=== PATIENT | male | born 1985 | race Caucasian/White ===

== ENCOUNTER 2018-02-12 20:55 | Emergency (ER) | payer BC, OTHER ==
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
[2018-02-12] MEDS ORDERED: AZITHROMYCIN 250 MG TABLET PO STA (22:35)
[2018-02-12] MEDS ORDERED: lamiVUDine/ZIDOVUDINE 150 MG/300 MG TABLET PO STA (22:35)
[2018-02-12 23:55] VITALS: BP 133/74
== END 2018-02-12 23:55 | disposition home or self-care (01) ==
LOC: ED 20:55
DX: Z11.3 Encounter for screening for infections with a predominantly sexual mode of transmission (principal)
CPT/HCPCS: 99282; 99283; A9270

== ENCOUNTER 2019-10-28 19:39 | Outpatient (CLI) | payer OTHER | END 2019-10-28 19:40 | disposition home or self-care (01) | LOC: COV 19:39 | PROVIDERS: ATTEND Family Medicine | DX: R05 Cough (principal); R06.02 Shortness of breath; M79.10 Myalgia, unspecified site; R53.83 Other fatigue; J02.9 Acute pharyngitis, unspecified; R09.81 Nasal congestion; Z20.828 Contact with and (suspected) exposure to other viral communicable diseases ==

== ENCOUNTER 2022-05-05 09:24 | Outpatient (CLI) | payer MEDICAID | END 2022-05-05 09:25 | disposition home or self-care (01) | LOC: DI 09:24 | PROVIDERS: ATTEND Physician Assistant | DX: R00.2 Palpitations (principal) | CPT/HCPCS: 93306 ==

== ENCOUNTER 2022-07-22 09:41 | Outpatient (CLI) | payer MEDICAID ==
--- NOTE | 2022-07-22 10:39 | Sleep Patient Instructions ---
Sleep Center Visit Summary - Patient Visit Information Reason for Visit: Initial consult for evaluation of sleep disordered breathing and other sleep issues. - Patient Instructions Instructions Attached: Sleep Study, Sleep Clinic Visit, Sleep Study Home Monitor Additional Instructions: You will be completing a sleep study, either an in-lab polysomnography (PSG) or home sleep study (HST). You will follow-up in the sleep care office after the sleep study is completed to hear the results and talk about therapy, if needed. You will be called by our office staff to schedule this appointment, but you may contact us with any questions. - Clinic Information Contact: [facility] [address] [place] [address] [email or web address] T: [phone]
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
[2022-07-22 10:45] VITALS: BP 118/68
== END 2022-07-22 09:42 | disposition home or self-care (01) ==
LOC: SC 09:41
PROVIDERS: ATTEND Nurse Practitioner Family
DX: R06.83 Snoring (principal); R06.81 Apnea, not elsewhere classified; E66.01 Morbid (severe) obesity due to excess calories; Z68.41 Body mass index [BMI] 40.0-44.9, adult; Z13.220 Encounter for screening for lipoid disorders; Z13.9 Encounter for screening, unspecified; Z13.29 Encounter for screening for other suspected endocrine disorder
CPT/HCPCS: 36415; 80053; 80061; 83721; 84443; 85025; 99203; 99212

== ENCOUNTER 2022-07-22 10:46 | Outpatient (CLI) | payer MEDICAID ==
[2022-07-22 17:52] LABS: BASOPHILS % (AUTO) 0.4 %; EOSINOPHILS # (AUTO) 0.1 10^3/uL (0.0-0.7); HCT - HEMATOCRIT 46.1 % (42.0-52.0); HGB - HEMOGLOBIN 15.1 g/dL (14.0-18.0); LYMPHOCYTES # (AUTO) 2.7 10^3/uL (1.5-3.5); LYMPHOCYTES % (AUTO) 29.5 %; MEAN CORPUSCULAR HEMOGLOBIN 29.9 pg (27.0-31.0); MEAN CORPUSCULAR HGB CONC 32.8 g/dL (32.0-36.0); MEAN CORPUSCULAR VOLUME 91.3 fL (80.0-94.0); MEAN PLATELET VOLUME 9.5 fL (7.4-11.4); MONOCYTES # (AUTO) 0.6 10^3/uL (0.0-1.0); NEUTROPHILS # (AUTO) 5.6 10^3/uL (1.5-6.6); NEUTROPHILS % (AUTO) 61.9 %; PLT - PLATELET COUNT 280 10^3/uL (130-450); RED BLOOD COUNT 5.05 10^6/uL (4.70-6.10); WHITE BLOOD COUNT 9.1 x10^3/uL (4.8-10.8)
[2022-07-22 18:16] LABS: ALBUMIN 4.1 g/dL (3.2-5.5); ALBUMIN/GLOBULIN RATIO 1.2 (1.0-2.2); BILIRUBIN,TOTAL 0.8 mg/dL (0.2-1.0); CALCIUM 9.3 mg/dL (8.5-10.3); CREATININE 0.7 mg/dL (0.6-1.2); POTASSIUM 3.9 mmol/L (3.5-5.0); TOTAL PROTEIN 7.6 g/dL (6.7-8.2)
[2022-07-22 18:19] LABS: CHOL/HDL RATIO 5.3 (<5.0); CHOLESTEROL 217 mg/dL; HDL CHOLESTEROL 41 mg/dL; TRIGLYCERIDES 433 mg/dL
[2022-07-22 18:21] LABS: THYROID STIMULATING HORMONE 1.62 uIU/mL (0.34-5.60)
[2022-07-22 18:51] LABS: LDL CHOLESTEROL,DIRECT 117 mg/dL; LDLD/HDL RATIO 2.9 (<3.6)
== END 2022-07-22 10:47 | disposition home or self-care (01) ==
LOC: LAB.N 10:46
PROVIDERS: ATTEND Physician Assistant
DX: Z13.220 Encounter for screening for lipoid disorders (principal); Z13.9 Encounter for screening, unspecified; Z13.29 Encounter for screening for other suspected endocrine disorder
CPT/HCPCS: 36415; 80053; 80061; 83721; 84443; 85025

== ENCOUNTER 2022-08-15 19:50 | Outpatient (CLI) | payer MEDICAID | END 2022-08-15 19:51 | disposition home or self-care (01) | LOC: SC 19:50 | PROVIDERS: ATTEND Nurse Practitioner Family | DX: G47.33 Obstructive sleep apnea (adult) (pediatric) (principal) | CPT/HCPCS: 95810 ==

== ENCOUNTER 2022-08-22 10:07 | Outpatient (CLI) | payer MEDICAID ==
--- NOTE | 2022-08-22 10:47 | SLEEP CARE CONSULTATION ---
Information from patient questionnaire entered by Alvin Cantu. I have reviewed and concur with the information entered by Alvin Cantu. This document represents the service I personally performed and the decisions made by me, Abilio Montana MD, [facility]. History of Present Illness Service Date and Time: 08/22/2022 1007 Initial [place] Sleepiness Scale score: 5 (07/22/22) Current [place] Sleepiness Scale score: 8 (08/22/22) Additional HPI information: Mr. Gavin returned for follow up of the sleep study he had on 08/15/2022. The polysomnography showed that The patient had reduced sleep efficiency due to prolonged awakening in the first half of the night. The sleep architecture was abnormal for sleep fragmentation and lack of REM and slow wave sleep (N3). Respiratory monitoring showed very severe obstructive sleep apnea-hypopnea (AHI = 94.5) associated with frequent arousals, oxyhemoglobin desaturation and moderate hypoxia (danica oxygen saturation of 63%). Baseline oxygen saturation was normal. The patient slept almost exclusively in non-supine positions (supine AHI = 116.8; non-supine = 88.36). Snore was moderate to loud in intensity. There was no significant periodic leg movement of sleep. Cardiac rhythm was normal sinus rhythm without significant arrhythmia. No abnormal behavior (parasomnia) observed during the night. The patient was informed of these findings. I explained to him the pathophysiology behind obstructive sleep apnea. We then spent quite a bit of time discussing different treatment options. For mild obstructive sleep apnea, surgery and oral appliance are alternatives to nasal CPAP therapy but in moderate or severe cases, nasal CPAP is the most effective and reliable treatment. Weight loss in an obese individual is strongly recommended. After some discussion, he opted to go with the nasal CPAP therapy. I explained to him how CPAP machine works and what to expect when using the machine. He is somewhat familiar with the treatment because his late father used a CPAP. Sleep Study - Results Type of Sleep Study: Polysomnography (COMPLETED 08/15/22) Prior sleep studies: No Allergies and Home Medications Drug allergies reviewed: Yes Home medication list reviewed: Yes Allergy and home medication list: Allergies No Known Drug Allergies Allergy (Verified 07/22/22 10:18) Review of Systems Review of systems same as previous: Yes Physical Exam Vital signs obtained and entered by: ALVIN Marroquin MA Blood Pressure: 126/82 (LEFT ARM) Cuff size: regular Heart Rate: 108 O2 Saturation: 96 Height: 6 ft 1 in Weight: 317 lb Body Mass Index: 41.8 BMI Classification: Morbidly Obese Impression and Plan IMPRESSION: 1. Obstructive Sleep Apnea-Hypopnea Syndrome, very severe, associated with severe hypoxemia and sleep fragmentation. Obviously this is the cause of the patients symptoms of unrefreshed sleep, and excessive daytime sleepiness. As mentioned above, the patient will be started on an autoCPAP set at 5 -15 cmH2O. An in-laboratory polysomnography will be ordered. PLAN: 1. Schedule a manual CPAP/BiPAP titration study. 2. Attempt to lose weight and avoid alcohol consumption near bedtime. 3. The patient is again cautioned about driving until his sleepiness completely resolves on the CPAP therapy. 4. Prescription made for an autoCPAP, heated humidifier, and related supplies. 5. Return for follow up after the next sleep study. Counseling Topics: Weight control Prescriptions: Auto CPAP Follow up with Sleep Care in: 1-2 months Follow up recommended for: Weight management Plan: CPAP/BiPAP titration study Visit Type: In Office Time Spent with Patient (minutes): 15 Provider Statement: I spent 100% of the Face to Face Visit with the patient with greater than 50% spent counseling the patient and coordination of care.
[2022-08-22 10:51] VITALS: BP 126/82
== END 2022-08-22 10:08 | disposition home or self-care (01) ==
LOC: SC 10:07
PROVIDERS: ATTEND Internal Medicine Pulmonary Disease
DX: G47.33 Obstructive sleep apnea (adult) (pediatric) (principal); E66.01 Morbid (severe) obesity due to excess calories; Z68.41 Body mass index [BMI] 40.0-44.9, adult
CPT/HCPCS: 99212

== ENCOUNTER 2022-10-03 21:22 | Outpatient (CLI) | payer MEDICAID | END 2022-10-03 21:23 | disposition home or self-care (01) | LOC: SC 21:22 | PROVIDERS: ATTEND Internal Medicine Pulmonary Disease | DX: G47.33 Obstructive sleep apnea (adult) (pediatric) (principal); G47.61 Periodic limb movement disorder | CPT/HCPCS: 95811 ==

== ENCOUNTER 2022-10-12 14:12 | Outpatient (CLI) | payer MEDICAID ==
--- NOTE | 2022-10-12 12:05 | SLEEP CARE CONSULTATION ---
Information from patient questionnaire entered by Jennifer Cantu. I have reviewed and concur with the information entered by Jennifer Cantu. This document represents the service I personally performed and the decisions made by , Ivette Ibarra ARNP. History of Present Illness Service Date and Time: 10/12/2022 1140 Initial Benton Sleepiness Scale score: 5 (07/22/22) Current Benton Sleepiness Scale score: 14 (10/12/22) Additional HPI information: INDRA ZIMMERMAN returns via video telehealth visit for follow up of the sleep study with a manual CPAP titration study performed on 10/03/2022. The patient was informed of the following polysomnography findings: CPAP was initiated at 5 cmH2O and titrated up to CPAP at 11 cmH2O. CPAP at 10 cmH2O appeared to be optimal (AHI of 4.7 per hour on the pressure). There was supine REM sleep on the pressure. Oxygen saturation was minimally low. Lower CPAP settings allowed more frequent residual respiratory events. The patient appeared to have tolerated positive airway pressure therapy fairly well. I explained that the optimal CPAP pressure is 10 cmH2O. Sleep Study - Results Type of Sleep Study: Polysomnography (COMPLETED 08/15/22 TITRATION F/U 10/03/22) Prior sleep studies: No Polysomnography/Home Sleep Study results: IMPRESSION: The quality of the study is good. CPAP was initiated at 5 cmH2O and titrated up to CPAP at 11 cmH2O. CPAP at 10 cmH2O appeared to be optimal (AHI of 4.7 per hour on the pressure). There was supine REM sleep on the pressure. Oxygen saturation was minimally low. Lower CPAP settings allowed more frequent residual respiratory events. The patient appeared to have tolerated positive airway pressure therapy fairly well. The patients sleep efficiency was reduced due to a prolonged awakening in the middle of the night. The sleep architecture was relatively normal considering the first-night effect. There was mild p eriodic leg movement of sleep not associated with sleep fragmentation. Cardiac rhythm was normal sinus rhythm without significant arrhythmia (59 - 89). No abnormal behavior (parasomnia) observed during the night. CONCLUSIONS and RECOMMENDATIONS: 1. Obstructive sleep apnea-hypopnea (ICD-10 G47.33), very severe (AHI was 94.5), adequately controlled with CPAP at 10 cmH2O. CPAP therapy is, therefore, recommended at the pressure setting. AutoCPAP set between 8 and 12 cmH20 is also appropriate. Mask used was a Siesta nasal mask With BMI of 42.2 Kg/M2, weight loss is also recommended. 2. Periodic leg movement of sleep (ICD G47.61), mild, treatment may be indicated. Clinical correlation advised. Allergies and Home Medications Known drug allergies: No Allergy and home medication list: Allergies No Known Drug Allergies Allergy (Verified 10/11/22 11:56) Physical Exam Vital signs obtained and entered by: JENNIFER Marroquin MA Height: 6 ft 1 in (PER PT) Weight: 300 lb (PER PT) Body Mass Index: 39.5 BMI Classification: Obese Impression and Plan 1. Obstructive Sleep Apnea-Hypopnea Syndrome, extremely severe. On CPAP therapy, the patient has better sleep quality and is more rested overall. Indra returns after titration study which showed optimal respiratory event control at 10 cmH2O. The patients pressure will be changed to autoCPAP 8-12 cmH20. Patient advised to contact me if pressure change is uncomfortable so that it can be adjusted. Goals for apnea control discussed. Patient states he has not been having any issues with using the CPAP at home. He feels the pressure is comfortable and he is noted that his episodes are "under 5%". He states he is getting a good seal with his mask and feels the mask is comfortable. Patient's apnea severity and rationale for treatment to reduce apnea, improve sleep quality and reduce cardiovascular and cerebrovascular events was reviewed. I also reviewed the benefit of consistent device use of CPAP for anxiety and attention deficit. 2. Obesity, unspecified. Currently patients BMI is 39.5. Obesity increases the risk of apnea, CPAP pressure requirements and overall health risks especially c ardiovascular and diabetes. Thus patient is advised to lose weight. 3. Periodic limb movement, mild, that did fragment patients sleep. Periodic limb movement of sleep (PLMS) is characterized by episodes of repetitive limb movements that occur during sleep and usually involve the lower limbs. The etiology is unknown. Caffeine can aggravate PLMS and should be avoided. Sleep hygiene methods can also improve sleep as well as lifestyle changes such as regular exercise. Patient was advised that no treatment is needed at this time. If symptoms increase, then further evaluation is indicated. * Change auto CPAP pressure to 8-12 cmH2O * Notify me if snoring with mask or feeling that the pressure is too much or too little * Attempt to lose weight * Call this office if any problems using CPAP * Return for follow up in 1-2 months, or sooner if concerns arise Counseling Topics: Weight loss health impact Visit Type: Telehealth Video Video Type: Doximity Patient Location: Home Location of Provider: Office Patient agrees and consents to this telehealth visit type: Yes Patient agrees to have their insurance billed: Yes Time Spent with Patient (minutes): 20 Provider Statement: I spent 100% of the Telehealth Video Call with the patient with greater than 50% spent counseling the patient and coordination of care.
== END 2022-10-12 14:13 | disposition home or self-care (01) ==
LOC: SC 14:12
PROVIDERS: ATTEND Nurse Practitioner Family
DX: G47.33 Obstructive sleep apnea (adult) (pediatric) (principal); E66.9 Obesity, unspecified; Z68.39 Body mass index [BMI] 39.0-39.9, adult; G47.61 Periodic limb movement disorder

== ENCOUNTER 2022-11-09 10:29 | Outpatient (CLI) | payer MEDICAID ==
--- NOTE | 2022-11-09 10:32 | SLEEP CARE CONSULTATION ---
Information from patient questionnaire entered by Jennifer Cantu. I have reviewed and concur with the information entered by Jennifer Cantu. This document represents the service I personally performed and the decisions made by , Ivette Ibarra ARNP. History of Present Illness Service Date and Time: 11/09/2022 1000 Previous diagnosis: Extremely Severe, Obstructive Sleep Apnea-Hypopnea Syndrome AHI: 94.5 (in 2022) Reason for follow up: first compliance Equipment type: CPAP (RESMED Airsense 11; s/u 07/2022) Equipment obtained from: Other ([facility]; getting supplies) Mask style: Nasal (over the nose) Backup mask available: No (will keep old mask when replaced) Last cushion change: 1 month Prior sleep studies: No Type of Sleep Study: Polysomnography (COMPLETED 08/15/22 TITRATION F/U 10/03/22) HPI additional information: INDRA ZIMMERMAN was diagnosed to have extremely severe, AHI 94.5, obstructive sleep apnea-hypopnea syndrome and returns via telehealth visit today for CPAP therapy first compliance follow-up. Sleep Study - Results Type of Sleep Study: Polysomnography (COMPLETED 08/15/22 TITRATION F/U 10/03/22) Prior sleep studies: No CPAP Compliance Data - Data Reviewed with Patient Average duration of nightly device use: 6 HRS 51 MINS Compliance rate %: 97 (10/08/22-11/06/22; 30/30 days used) Current pressure setting (cmH2O): 8-12 Average residual AHI: 2.6 Central apnea: 0.3 Obstructive apnea: 1.6 Hypopnea: 0.6 Average large leak: 5.1 L/min Subjective Missed days of use due to: reports: other (having trouble sleeping at night) Patient concerns: reports: condensation in mask/hose (small, occasional). denies: aerophagia, mask discomfort, air blowing in eyes, mask leak noise, nasal congestion, dry mouth, nose, throat, epistaxis Observed to snore while using device: No Current pressure setting perceived as: comfortable On therapy, patient: reports: sleeping better, awakening more refreshed, being more awake and alert during the day, more rested overall. denies: drowsiness while driving Initial Mullin Sleepiness Scale score: 5 (07/22/22) Current Mull[place] Sleepiness Scale score: 9 Allergies and Home Medications Known drug allergies: No Drug allergies reviewed: Yes Home medication list reviewed: Yes (Guiaffesien; Sertraline 150 mg; ) Allergy and home medication list: Allergies No Known Drug Allergies Allergy (Verified 11/08/22 12:01) Review of Systems Review of systems same as previous: Yes (no changes) Physical Exam Vital signs obtained and entered by: Ivette Price NP Height: 6 ft 1 in (PER PT) Weight: 300 lb (Per Pt) Body Mass Index: 39.5 BMI Classification: Obese Impression and Plan 1. Obstructive Sleep Apnea-Hypopnea Syndrome, extremely severe, with good treatment compliance and good apnea control. On CPAP therapy, the patient has better sleep quality and is more rested overall. Patient has significant improvement of their sleep apnea and is satisfied with current CPAP therapy. He states he gets a little bit of condensation in the mask with occasional leak noises but this resolves with mask adjustment. He is using a large cushion with current mask and states it is comfortable. I will have him come back in about 3 months just to check in and see how he is doing with the CPAP therapy. He knows he can come back sooner if he has any concerns. Patient's apnea severity and rationale for treatment to reduce apnea, improve sleep quality and reduce cardiovascular and cerebrovascular events was reviewed. I also reviewed the benefit of consistent device use of CPAP for anxiety and attention deficit. 2. Obesity, unspecified. Currently patients BMI is 39.5. Obesity increases the risk of apnea, CPAP pressure requirements and overall health risks especially cardiovascular and diabetes. Thus patient is advised to lose weight. * Continue auto CPAP pressure at 8-12 cmH2O * Notify me if snoring with mask or feeling that the pressure is too much or too little * Attempt to lose weight * Call this office if any problems using CPAP * Return for follow up in 3 months, or sooner if concerns arise Counseling Topics: Spare mask, Weight loss health impact Follow up with Sleep Care in: 3 months Visit Type: Telehealth Phone Video Type: Jarod Patient Location: Home Location of Provider: Office Patient agrees and consents to this telehealth visit type: Yes Patient agrees to have their insurance billed: Yes Time Spent with Patient (minutes): 23 Provider Statement: I spent 100% of the Telehealth Phone Call with the patient with greater than 50% spent counseling the patient and coordination of care.
== END 2022-11-09 10:30 | disposition home or self-care (01) ==
LOC: SC 10:29
PROVIDERS: ATTEND Nurse Practitioner Family
DX: G47.33 Obstructive sleep apnea (adult) (pediatric) (principal); E66.9 Obesity, unspecified; Z68.39 Body mass index [BMI] 39.0-39.9, adult

== ENCOUNTER 2023-02-07 14:07 | Outpatient (CLI) | payer MEDICAID ==
[2023-02-07 18:27] LABS: BUN - BLOOD UREA NITROGEN 12 mg/dL (6-20); CALCIUM 9.7 mg/dL (8.5-10.3); CARBON DIOXIDE - CO2 28 mmol/L (21-32); CHLORIDE 103 mmol/L (101-111); CHOLESTEROL 182 mg/dL; CREATININE 0.6 mg/dL (0.6-1.3); GFR - MDRD 150 (>89); GLUCOSE 119 mg/dL (74-104); HDL CHOLESTEROL 46 mg/dL; LDL CHOLESTEROL,CALCULATED 88 mg/dL; LDL/HDL RATIO 1.9 (<3.6); POTASSIUM 3.9 mmol/L (3.5-4.5); SODIUM 136 mmol/L (135-145); TRIGLYCERIDES 238 mg/dL (48-352); VLDL CHOLESTEROL 48 mg/dL
[2023-02-07 20:26] LABS: ESTIMATED AVERAGE GLUCOSE 123 mg/dL (70-100); HEMOGLOBIN A1c% 5.9 % (4.27-6.07)
== END 2023-02-07 14:08 | disposition home or self-care (01) ==
LOC: LAB.N 14:07
PROVIDERS: ATTEND Physician Assistant
DX: E78.1 Pure hyperglyceridemia (principal); R73.01 Impaired fasting glucose
CPT/HCPCS: 36415; 80048; 80061; 83036; 83721

== ENCOUNTER 2023-02-09 11:36 | Outpatient (CLI) | payer MEDICAID ==
--- NOTE | 2023-02-09 11:55 | Sleep Patient Instructions ---
Sleep Center Visit Summary - Patient Visit Information Reason for Visit: Three month followup - Patient Instructions Additional Instructions: You were here for follow up of CPAP therapy. You will be continued on CPAP therapy with pressure at 8-12 cmH2O. You should follow up with sleep care in 6 months. You may contact us sooner for any questions or concerns. - Clinic Information Contact: [facility] [address] [place] [id number] [email or web address] T: [phone]
--- NOTE | 2023-02-09 12:02 | SLEEP CARE CONSULTATION ---
Information from patient questionnaire entered by Jennifer Cantu. I have reviewed and concur with the information entered by Jennifer Cantu. This document represents the service I personally performed and the decisions made by , Ivette Ibarra ARNP. History of Present Illness Service Date and Time: 02/09/2023 1136 Previous diagnosis: Extremely Severe, Obstructive Sleep Apnea-Hypopnea Syndrome AHI: 94.5 (09/2022) Reason for follow up: three month (F/U) Equipment type: CPAP (RESMED Airsense 11, s/u 07/2022) Equipment obtained from: Other ([facility]; getting supplies as needed) Mask style: Nasal Backup mask available: Yes (other mask) Last cushion change: over 3 months Prior sleep studies: No Type of Sleep Study: Polysomnography (COMPLETED 08/15/22 TITRATION F/U 10/03/22) HPI additional information: INDRA ZIMMERMAN was diagnosed to have extremely severe, AHI 94.5, obstructive sleep apnea-hypopnea syndrome and returned today for CPAP therapy three month follow- up. Sleep Study - Results Type of Sleep Study: Polysomnography (COMPLETED 08/15/22 TITRATION F/U 10/03/22) Prior sleep studies: No CPAP Compliance Data - Data Reviewed with Patient Average duration of nightly device use: 6 hours 45 minutes Compliance rate %: 90 (90/90 days used) Current pressure setting (cmH2O): 8-12 Average residual AHI: 1.7 Central apnea: 0.1 Obstructive apnea: 1 Hypopnea: 0.5 Average large leak: 6.8 L/min Subjective Patient concerns: reports: air blowing in eyes, mask leak noise, condensation in mask/hose (occasional). denies: aerophagia, mask discomfort, nasal congestion, dry mouth, nose, throat, epistaxis Observed to snore while using device: No Current pressure setting perceived as: comfortable On therapy, patient: reports: sleeping better, awakening more refreshed, being more awake and alert during the day, more rested overall. denies: drowsiness while driving Initial [place] Sleepiness Scale score: 5 (07/22/22) Current [place] Sleepiness Scale score: 12 (02/09/23) Allergies and Home Medications Known drug allergies: No Drug allergies reviewed: Yes Home medication list reviewed: Yes (no changes) Allergy and home medication list: Allergies No Known Drug Allergies Allergy (Verified 02/08/23 09:37) Home Medications Fenofibrate See Rx Instructions .ROUTE .COMPLEX 02/08/23 [History Confirmed 02/08/23] Review of Systems Review of systems same as previous: Yes (NO CHANGE) Physical Exam Vital signs obtained and entered by: JENNIFER Marroquin MA Blood Pressure: 132/82 (LEFT ARM) Cuff size: regular Heart Rate: 85 O2 Saturation: 97 Height: 6 ft 1 in Weight: 314 lb 6.4 oz Body Mass Index: 41.4 BMI Classification: Morbidly Obese Impression and Plan 1. Obstructive Sleep Apnea-Hypopnea Syndrome, extremely severe, with good treatment compliance and good apnea control. On CPAP therapy, the patient has better sleep quality and is more rested overall. 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 Patient has significant improvement of their sleep apnea and is satisfied with current CPAP therapy. Patient denies problems with oral dryness, nasal congestion, epistaxis, skin irritation or aerophagia. Patient's apnea severity and rationale for treatment to reduce apnea, improve sleep quality and reduce cardiovascular and cerebrovascular events was reviewed. I also reviewed the benefit of consistent device use of CPAP for anxiety and attention deficit. 2. Obesity, unspecified. Currently patients BMI is 41.4. Obesity increases the risk of apnea, CPAP pressure requirements and overall health risks especially cardiovascular and diabetes. Thus patient is advised to lose weight. * Continue auto CPAP pressure at 8-12 cmH2O * Notify me if snoring with mask or feeling that the pressure is too much or too little * Attempt to lose weight * Call this office if any problems using CPAP * Return for follow up in 6 months, or sooner if concerns arise Counseling Topics: Spare mask, Weight loss health impact Follow up with Sleep Care in: 6 months Visit Type: In Office Time Spent with Patient (minutes): 22 Provider Statement: I spent 100% of the Face to Face Visit with the patient with greater than 50% spent counseling the patient and coordination of care.
[2023-02-09 12:10] VITALS: BP 132/82; O2SAT 97
== END 2023-02-09 11:37 | disposition home or self-care (01) ==
LOC: SC 11:36
PROVIDERS: ATTEND Nurse Practitioner Family
DX: G47.33 Obstructive sleep apnea (adult) (pediatric) (principal); E66.01 Morbid (severe) obesity due to excess calories; Z68.41 Body mass index [BMI] 40.0-44.9, adult
CPT/HCPCS: 99212; 99213

== ENCOUNTER 2023-06-06 12:12 | Outpatient (CLI) | payer MEDICAID ==
--- NOTE | 2023-06-06 16:15 | XRAY Report ---
PROCEDURE: Knee 3V RT INDICATIONS: KNEE PAIN, RIGHT TECHNIQUE: 3 views of the knee(s) were acquired. COMPARISON: None. FINDINGS: Bones: No fractures or dislocations. Medial and lateral compartment joint spaces are maintained. Tin y osteophytosis of the patellofemoral compartment. No suspicious bony lesions. Soft tissues: No knee joint effusion. No suspicious soft tissue calcifications or masses. IMPRESSION: 1.No acute bony abnormality. If clinical symptoms persist, consider repeat radiograph in 10-14 days v ersus cross-sectional imaging. 2.Tiny osteophytosis of the patellofemoral compartment. Joint spaces are maintained. Reviewed by: Ivonne Alvarenga MD on 06/06/2023 4:14 PM PDT Approved by: Ivonne Alvarenga MD on 06/06/2023 4:14 PM PDT Station ID: [id number]
== END 2023-06-06 12:13 | disposition home or self-care (01) ==
LOC: DI.N 12:12
PROVIDERS: ATTEND Physician Assistant
DX: M25.761 Osteophyte, right knee (principal); M25.561 Pain in right knee

== ENCOUNTER 2023-06-06 12:15 | Outpatient (CLI) | payer MEDICAID ==
[2023-06-06 21:13] LABS: CHLAMYDIA TRACHOMATIS DNA NEGATIVE (NEGATIVE); NEISSERIA GONORRHOEAE DNA NEGATIVE (NEGATIVE); TRICHOMONAS VAGINALIS DNA NEGATIVE (NEGATIVE)
[2023-06-07 03:09] LABS: HSV 1 IGG TYPE SPEC <0.91 index (0.00-0.90); HSV 2 IGG TYPE SPEC <0.91 index (0.00-0.90)
[2023-06-07 05:12] LABS: RPR Non Reactive (Non Reactive)
== END 2023-06-06 12:16 | disposition home or self-care (01) ==
LOC: LAB.N 12:15
PROVIDERS: ATTEND Physician Assistant
DX: Z20.2 Contact with and (suspected) exposure to infections with a predominantly sexual mode of transmission (principal)
CPT/HCPCS: 36415; 86592; 86695; 86696; 86803; 87389; 87491; 87591; 87661

== ENCOUNTER 2023-08-15 13:38 | Outpatient (CLI) | payer MEDICAID ==
--- NOTE | 2023-08-15 13:20 | SLEEP CARE CONSULTATION ---
Information from patient questionnaire entered by Jennifer Cantu. I have reviewed and concur with the information entered by Jennifer Cantu. This document represents the service I personally performed and the decisions made by , Ivette Ibarra ARNP. History of Present Illness Service Date and Time: 08/15/2023 1300 Previous diagnosis: Extremely Severe, Obstructive Sleep Apnea-Hypopnea Syndrome AHI: 94.5 (09/2022) Reason for follow up: six month Equipment type: CPAP (RESMED Airsense 11, s/u 07/2022) Equipment obtained from: Other ([facility]; getting supplies as needed but a little late) Mask style: Nasal (over the nose) Backup mask available: Yes (old mask) Prior sleep studies: No Type of Sleep Study: Polysomnography (COMPLETED 08/15/22 TITRATION F/U 10/03/22) HPI additional information: INDRA ZIMMERMAN was diagnosed to have extremely severe, AHI 94.5, obstructive sleep apnea-hypopnea syndrome and returns via telephone visit today for CPAP therapy six month follow-up. Sleep Study - Results Type of Sleep Study: Polysomnography (COMPLETED 08/15/22 TITRATION F/U 10/03/22) Prior sleep studies: No CPAP Compliance Data - Data Reviewed with Patient Average duration of nightly device use: 6 HRS 23 MINS Compliance rate %: 88 (02/11/23-08/09/23; 173/180 days used) Current pressure setting (cmH2O): 8-12 Average residual AHI: 1.5 Central apnea: 0.1 Obstructive apnea: 1 Hypopnea: 0.4 Average large leak: 5.7 L/min Subjective Missed days of use due to: reports: other (fell asleep before putting mask on) Patient concerns: reports: other (heating element stopped working). denies: aerophagia, mask discomfort, air blowing in eyes, mask leak noise, condensation in mask/hose, nasal congestion, dry mouth, nose, throat, epistaxis Observed to snore while using device: No Current pressure setting perceived as: comfortable On therapy, patient: reports: sleeping better, awakening more refreshed, being more awake and alert during the day, more rested overall. denies: drowsiness while driving Initial [place] Sleepiness Scale score: 5 (07/22/22) Current [place] Sleepiness Scale score: 7 Allergies and Home Medications Known drug allergies: No Drug allergies reviewed: Yes Home medication list reviewed: Yes (no changes) Allergy and home medication list: Allergies No Known Drug Allergies Allergy (Verified 08/10/23 09:16) Review of Systems Review of systems same as previous: Yes (no changes) Physical Exam Vital signs obtained and entered by: IVETTE SIM Height: 6 ft 1 in Weight: 310 lb Body Mass Index: 40.8 BMI Classification: Morbidly Obese Impression and Plan 1. Obstructive Sleep Apnea-Hypopnea Syndrome, extremely severe, with good treatment compliance and good apnea control. On CPAP therapy, the patient has better sleep quality and is more rested overall. Patient has significant improvement of his sleep apnea and is comfortable using his CPAP. He did have questions about possibly getting a laser surgery to help reduce his sleep apnea. I encouraged him to reach out to his primary for referral as needed if he decides to do this. Patient states his machine is working well except for the heating element is not working in the humidifier. He states is not an issue because he does not use it anyway. I will send an order for machine to be serviced to see if this can be corrected. He should be hearing from [facility] to set this up. He voiced understanding. Patient's apnea severity and rationale for treatment to reduce apnea, improve sleep quality and reduce cardiovascular and cerebrovascular events was reviewed. I also reviewed the be nefit of consistent device use of CPAP for anxiety, attention deficit. 2. Obesity, unspecified. Currently patients BMI is 40.8. Obesity increases the risk of apnea, CPAP pressure requirements and overall health risks especially cardiovascular and diabetes. Thus patient is advised to lose weight. * Continue auto CPAP pressure at 8-12 cmH2O * Service machine * Notify me if snoring with mask or feeling that the pressure is too much or too little * Attempt to lose weight * Call this office if any problems using CPAP * Return for follow up in 12 months, or sooner if concerns arise Counseling Topics: Spare mask, Weight loss health impact Prescriptions: Other (Service machine-humidifier element not working) Follow up with Sleep Care in: 1 year Visit Type: Telehealth Phone Video Type: [place] Patient Location: Home Location of Provider: Office Patient agrees and consents to this telehealth visit type: Yes Time Spent with Patient (minutes): 20 Provider Statement: I spent 100% of the Telehealth Phone Call with the patient with greater than 50% spent counseling the patient and coordination of care.
== END 2023-08-15 13:39 | disposition home or self-care (01) ==
LOC: SC 13:38
PROVIDERS: ATTEND Nurse Practitioner Family
DX: G47.33 Obstructive sleep apnea (adult) (pediatric) (principal); E66.01 Morbid (severe) obesity due to excess calories; Z68.41 Body mass index [BMI] 40.0-44.9, adult
CPT/HCPCS: 99442